=== PATIENT | male | born 1970 | race African-American/Black ===

== ENCOUNTER 2019-08-30 15:59 | Emergency (ER) | payer OTHER ==
[~2019-08-30] VITALS: Ht 180.3 cm; Wt 66.0 kg
[2019-08-30 16:02] VITALS: BP 148/100
[2019-08-30] MEDS ORDERED: IBUPROFEN 400MG TABLET PO ONE (17:00)
== END 2019-08-30 18:13 | disposition home or self-care (01) ==
LOC: ER 15:59
DX: R07.89 Other chest pain (principal); M25.561 Pain in right knee; E11.9 Type 2 diabetes mellitus without complications; I10 Essential (primary) hypertension; V49.88XA Car occupant (driver) (passenger) injured in other specified transport accidents, initial encounter; Y93.89 Activity, other specified; Y92.89 Other specified places as the place of occurrence of the external cause; Y99.8 Other external cause status
CPT/HCPCS: 71045; 73562; 93005; 99283